=== PATIENT | female | born 1960 | race Caucasian/White ===

== ENCOUNTER 2017-10-16 10:54 | Emergency (ER) | payer MEDICAID ==
--- NOTE | 2017-10-16 11:35 | ED Physician Documentation ---
PD HPI HEENT - Stated complaint Stated Complaint: RT EAR PX - Chief complaint Chief Complaint: Heent - History obtained from History obtained from: Patient - History of Present Illness Timing - onset: How many days ago (few) Timing - duration: Days Timing - details: Gradual onset, Still present Location: Right ear Worsens: Other (palpation) Associated symptoms: Swollen nodes. No: Fever, Congestion, Facial swelling, Cough Similar symptoms before: Has not had sx before Recently seen: Not recently seen Review of Systems Constitutional: denies: Fever, Chills Ears: reports: Ear pain, Drainage/discharge. 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 - Present Medications Home Medications: Ambulatory Orders Medication Instructions Recorded Confirmed Gabapentin 100 - 300 mg PO PRN 10/16/17 Sulfamethox/Trimeth 800/160 1 each PO BID #14 tablet 10/16/17 [Bactrim Ds 800/160] - Allergies Allergies/Adverse Reactions: Allergies Allergy/AdvReac Type Severity Reaction Status Date / Time No Known Drug Allergies Allergy Verified 10/16/17 10:59 - Social History Does the pt smoke?: Yes Smoking Status: Current every day smoker Does the pt drink ETOH?: Yes ETOH Use: Beer Does the pt have substance abuse?: No - Immunizations Immunizations are current?: No PD ED PE NORMAL - Vitals Vital signs reviewed: Yes - General General: Alert and oriented X 3, Well developed/nourished - HEENT HEENT: Moist mucous membranes, Pharynx benign, Other (right ear around the external canal and inner pinna with redness and swelling, some clear fluid weeping. No purulence per se. The medial canal is okay and TM is normal on right. Left ear, canal, and TM are normal. ) - Neck Neck: Supple, no meningeal sign, Other (right preauricular adenopathy. ) - Cardiac Cardiac: RRR, No murmur - Respiratory Respiratory: Clear bilaterally - Derm Derm: Normal color, Warm and dry Results - Vitals Vitals: Vital Signs - 24 hr 10/16/17 10/16/17 10:56 12:37 Temperature 36.5 C 36.6 C Heart Rate 105 H 78 Respiratory 16 18 Rate Blood Pressure 170/91 H 164/99 H O2 Saturation 98 97 Oxygen O2 Source Room air - Labs Labs: Microbiology 10/16/17 12:29 Wound Culture - Preliminary Face - Right PD MEDICAL DECISION MAKING - ED course Complexity details: considered differential, d/w patient Departure - Departure Disposition: Home, Self Care Clinical Impression: Cellulitis of earlobe Qualifiers: Laterality: right Qualified Code(s): H60.11 - Cellulitis of right external ear Condition: Stable Record reviewed to determine appropriate education?: Yes Instructions: ED Cellulitis Facial Prescriptions: Sulfamethox/Trimeth 800/160 [Bactrim Ds 800/160] 1 each PO BID #14 tablet Comments: Cleanse the area with soap and water gently and then you can use the antibiotic eardrops 3 4 times a day. Also use a lidocaine jelly topically to reduce some of the discomfort and burning feeling. It does look to be a skin infection of the ear lobe and ear canal and so use Bactrim antibiotic orally twice daily for a week. Recheck if not improving over the next few days. Discharge Date/Time: 10/16/17 12:37
[2017-10-16] MEDS ORDERED: NEOMYCIN/POLYMYX/HC OTIC DROPS RIGHTEAR STA (11:54)
[2017-10-16] MEDS ORDERED: LIDOCAINE JELLY 2% 5 ML TUBE TOP STA (11:54)
[2017-10-16] MEDS ORDERED: SULFAMETH/TRIMETH DS 800/160 MG TABLET PO STA (11:54)
[2017-10-16 12:43] VITALS: BP 164/99
== END 2017-10-16 12:37 | disposition home or self-care (01) ==
LOC: ED 10:54
DX: H60.11 Cellulitis of right external ear (principal); F17.200 Nicotine dependence, unspecified, uncomplicated
CPT/HCPCS: 87070; 87205; 99283; A9270; J3490

== ENCOUNTER 2017-12-02 10:37 | Outpatient (CLI) | payer MEDICAID ==
[2017-12-02 12:48] LABS: BASOPHILS # (AUTO) 0.1 10^3/uL (0.0-0.1); BASOPHILS % (AUTO) 0.6 %; EOSINOPHILS # (AUTO) 0.1 10^3/uL (0.0-0.7); EOSINOPHILS % (AUTO) 0.5 %; LYMPHOCYTES % (AUTO) 17.5 %; MEAN CORPUSCULAR HEMOGLOBIN 30.6 pg (27.0-31.0); MEAN CORPUSCULAR HGB CONC 33.2 g/dL (32.0-36.0); MEAN PLATELET VOLUME 7.2 fL (7.9-10.8); MONOCYTES # (AUTO) 0.3 10^3/uL (0.0-1.0); MONOCYTES % (AUTO) 2.8 %; NEUTROPHILS % (AUTO) 78.6 %; PLT - PLATELET COUNT 406 10^3/uL (130-450); RED BLOOD COUNT 4.58 10^6/uL (4.20-5.40); RED CELL DISTRIBUTION WIDTH 13.3 % (12.0-15.0); WHITE BLOOD COUNT 11.5 x10^3/uL (4.8-10.8)
[2017-12-02 13:19] LABS: HB2 TOTAL 15.5 g/dL; HEMOGLOBIN A1C 0.58 g/dL; HEMOGLOBIN A1C % 5.6 % (4.6-6.2)
[2017-12-02 13:36] LABS: ALBUMIN 4.2 g/dL (3.2-5.5); ALBUMIN/GLOBULIN RATIO 1.2 (1.0-2.2); ALKALINE PHOSPHATASE 90 IU/L (42-121); ALT ALANINE AMINOTRANSFERASE 14 IU/L (10-60); AST ASPARTATE AMINOTRANSFERASE 17 IU/L (10-42); BILIRUBIN,TOTAL 0.7 mg/dL (0.2-1.0); BUN - BLOOD UREA NITROGEN 11 mg/dL (6-20); CALCIUM 9.4 mg/dL (8.5-10.3); CARBON DIOXIDE - CO2 31 mmol/L (21-32); CHLORIDE 100 mmol/L (101-111); CHOL/HDL RATIO 3.6 (<4.4); CHOLESTEROL 198 mg/dL; CREATININE 0.6 mg/dL (0.4-1.0); GFR - MDRD 104 (>89); GLUCOSE 96 mg/dL (70-100); HDL CHOLESTEROL 55 mg/dL; LDL CHOLESTEROL,CALCULATED 115 mg/dL; LDL/HDL RATIO 2.1 (<4.4); SODIUM 136 mmol/L (135-145); TOTAL PROTEIN 7.6 g/dL (6.7-8.2); VLDL CHOLESTEROL 28 mg/dL
== END 2017-12-02 10:38 | disposition home or self-care (01) ==
LOC: LAB.WCP 10:37
PROVIDERS: ATTEND Family Medicine
DX: Z13.1 Encounter for screening for diabetes mellitus (principal); Z13.220 Encounter for screening for lipoid disorders; R03.0 Elevated blood-pressure reading, without diagnosis of hypertension
CPT/HCPCS: 36415; 80053; 80061; 83036; 83721; 84443; 85025

== ENCOUNTER 2018-10-25 11:12 | Outpatient (CLI) | payer MEDICAID ==
--- NOTE | 2018-10-25 14:18 | XRAY Report ---
Reason: PELVIC PAIN,LEFT Procedure Date: 10/25/2018 Accession Number: [id number] / [id number] Procedure: WCP - Pelvis 1 View CPT Code: FULL RESULT: EXAM: PELVIS RADIOGRAPHY EXAM DATE: 10/25/2018 11:10 AM. CLINICAL HISTORY: Left-sided groin pain. History of left pelvic fracture. COMPARISON: XR HIP UNILAT MIN 2 VIEW 07/23/2007 6:58 PM. TECHNIQUE: 1 view. FINDINGS: Bones: Appearance of the inferior left pubic ramus and inferior right pubic ramus is stable compared to 2007. No acute fracture is detected. Joints: The visualized hip joints are symmetrically mildly narrowed, new compared to 2008. The pubis symphysis and sacroiliac joints are preserved. No subluxation. Soft Tissues: Normal. No soft tissue swelling. IMPRESSION: Mild degenerative disease. RADIA
== END 2018-10-25 11:13 | disposition home or self-care (01) ==
LOC: DI.WCP 11:12
PROVIDERS: ATTEND Physician Assistant
DX: M16.0 Bilateral primary osteoarthritis of hip (principal)
CPT/HCPCS: 72170

== ENCOUNTER 2019-05-16 10:03 | Outpatient (CLI) | payer MEDICAID ==
[2019-05-16 15:24] LABS: BASOPHILS # (AUTO) 0.1 10^3/uL (0.0-0.1); BASOPHILS % (AUTO) 0.9 %; EOSINOPHILS # (AUTO) 0.1 10^3/uL (0.0-0.7); EOSINOPHILS % (AUTO) 1.3 %; HGB - HEMOGLOBIN 14.2 g/dL (12.0-16.0); LYMPHOCYTES # (AUTO) 2.2 10^3/uL (1.5-3.5); LYMPHOCYTES % (AUTO) 26.4 %; MEAN CORPUSCULAR HEMOGLOBIN 29.7 pg (27.0-31.0); MEAN CORPUSCULAR HGB CONC 31.4 g/dL (32.0-36.0); MEAN CORPUSCULAR VOLUME 94.6 fL (81.0-99.0); MEAN PLATELET VOLUME 9.7 fL (7.9-10.8); MONOCYTES # (AUTO) 0.4 10^3/uL (0.0-1.0); MONOCYTES % (AUTO) 4.3 %; NEUTROPHILS # (AUTO) 5.5 10^3/uL (1.5-6.6); NEUTROPHILS % (AUTO) 66.7 %; PLT - PLATELET COUNT 246 10^3/uL (130-450); RED BLOOD COUNT 4.78 10^6/uL (4.20-5.40); RED CELL DISTRIBUTION WIDTH 12.9 % (12.0-15.0); WHITE BLOOD COUNT 8.2 x10^3/uL (4.8-10.8)
[2019-05-16 16:13] LABS: ALBUMIN 4.9 g/dL (3.2-5.5); ALBUMIN/GLOBULIN RATIO 1.7 (1.0-2.2); ALKALINE PHOSPHATASE 89 IU/L (42-121); ALT ALANINE AMINOTRANSFERASE 22 IU/L (10-60); AST ASPARTATE AMINOTRANSFERASE 23 IU/L (10-42); BILIRUBIN,TOTAL 0.6 mg/dL (0.2-1.0); BUN - BLOOD UREA NITROGEN 18 mg/dL (6-20); CALCIUM 9.7 mg/dL (8.5-10.3); CARBON DIOXIDE - CO2 29 mmol/L (21-32); CHLORIDE 101 mmol/L (101-111); CHOL/HDL RATIO 3.9 (<4.4); CHOLESTEROL 270 mg/dL; CREATININE 0.7 mg/dL (0.4-1.0); GFR - MDRD 87 (>89); GLUCOSE 89 mg/dL (70-100); HDL CHOLESTEROL 70 mg/dL; LDL CHOLESTEROL,CALCULATED 165 mg/dL; LDL/HDL RATIO 2.4 (<4.4); SODIUM 138 mmol/L (135-145); TOTAL PROTEIN 7.8 g/dL (6.7-8.2); VLDL CHOLESTEROL 35 mg/dL
== END 2019-05-16 23:59 | disposition home or self-care (01) ==
LOC: LAB.WCP 10:03
PROVIDERS: ATTEND Physician Assistant Medical
DX: Z00.00 Encounter for general adult medical examination without abnormal findings (principal)
CPT/HCPCS: 36415; 80053; 80061; 83721; 84443; 85025

== ENCOUNTER 2019-08-08 09:52 | Day surgery (SDC) | payer MEDICAID ==
[~2019-08-08 09:52] MED LIST: SODIUM/POTASSIUM/MAG SULFATES 354 ML PREP KIT PO SCH
[2019-08-08] MEDS ORDERED: LACTATED RINGERS 1,000 ML IV ONE (10:45)
[2019-08-08] MEDS ORDERED: fentaNYL 250 MCG/5 ML VIAL IVP ONE (11:54)
[2019-08-08] MEDS ORDERED: MIDAZOLAM 2 MG/2 ML VIAL IVP ONE (11:54)
[2019-08-08 13:01] VITALS: BP 110/58
== END 2019-08-08 09:53 | disposition home or self-care (01) ==
LOC: SDS 09:52
PROVIDERS: ATTEND Internal Medicine Gastroenterology
PROC: 0DBN8ZZ Excision of Sigmoid Colon, Via Natural or Artificial Opening Endoscopic (ICD-10-PCS; 2019-08-08)
PROC: 0DBK8ZZ Excision of Ascending Colon, Via Natural or Artificial Opening Endoscopic (ICD-10-PCS; principal; 2019-08-08 11:45)
DX: Z12.11 Encounter for screening for malignant neoplasm of colon (principal); D12.2 Benign neoplasm of ascending colon; K63.5 Polyp of colon; I10 Essential (primary) hypertension
CPT/HCPCS: 45380; 93005; A9270; J3010; J7120

== ENCOUNTER 2019-08-29 10:36 | Outpatient (CLI) | payer MEDICAID ==
[2019-08-29 18:47] LABS: CHOL/HDL RATIO 4.2 (<4.4); CHOLESTEROL 216 mg/dL; HDL CHOLESTEROL 52 mg/dL; LDL CHOLESTEROL,CALCULATED 108 mg/dL; LDL/HDL RATIO 2.1 (<4.4); VLDL CHOLESTEROL 56 mg/dL
== END 2019-08-29 23:59 | disposition home or self-care (01) ==
LOC: LAB.WCP 10:36
PROVIDERS: ATTEND Physician Assistant Medical
DX: E78.5 Hyperlipidemia, unspecified (principal)
CPT/HCPCS: 36415; 80061; 83721

== ENCOUNTER 2019-12-20 05:03 | Outpatient (CLI) | payer MEDICAID | END 2019-12-20 23:59 | disposition home or self-care (01) | LOC: LAB.R 05:03 | PROVIDERS: ATTEND Nurse Practitioner Family | DX: R30.0 Dysuria (principal) | CPT/HCPCS: 87086 ==

== ENCOUNTER 2020-01-13 12:43 | Outpatient (CLI) | payer MEDICAID ==
--- NOTE | 2020-01-13 15:35 | DEXA Report ---
Reason: POSTMENOPAUSAL Procedure Date: 01/13/2020 Accession Number: [id number] / [id number] Procedure: DEX - Dexa Spine and/or Hip CPT Code: Final Report FULL RESULT: PROCEDURE: Dexa Spine and/or Hip INDICATIONS: POSTMENOPAUSAL TECHNIQUE: Dual energy x-ray absorptiometry (DXA) was performed on a [employer] System. Regions measured are the AP Spine, femoral neck, and if needed forearm. COMPARISON: None. FINDINGS: Lumbar Spine: Bone Mineral Density 1.112 g/cm/cm,T score -0.6, normal Left Hip: Bone Mineral Density 0.817 g/cm/cm,T score -1.5, osteopenia Left Femoral Neck: Bone Mineral Density 0.764 g/cm/cm, T score -2.0, osteopenia (T score greater or equal to -1.0: NORMAL) (T score from -1.1 to -2.4: OSTEOPENIA) (T score less than or equal to -2.5 to: OSTEOPOROSIS) Impression: Mild to moderate osteopenia within the left hip and femoral neck. Patients with diagnosis of osteoporosis or osteopenia should have regular bone mineral density assessment. For those eligible for Medicare, routine testing is allowed once every 2 years. Testing frequency can be increased for patients who have rapidly progressing disease or for those who are receiving medical therapy to restore bone mass. Reviewed by: Rosemarie Olmos MD on 01/13/2020 3:34 PM PDT Approved by: Rosemarie Olmos MD on 01/13/2020 3:34 PM PDT Station ID: [id number]
== END 2020-01-13 12:44 | disposition home or self-care (01) ==
LOC: DI 12:43
PROVIDERS: ATTEND Physician Assistant Medical
DX: M85.89 Other specified disorders of bone density and structure, multiple sites (principal)
CPT/HCPCS: 77080

== ENCOUNTER 2020-03-30 15:31 | Outpatient (CLI) | payer MEDICAID ==
--- NOTE | 2020-04-02 16:19 | Mammography Report ---
BILATERAL DIGITAL SCREENING MAMMOGRAM 3D/2D: 03/30/2020 CLINICAL: Baseline exam. Routine screening. No prior exams were available for comparison. There are scattered fibroglandular elements in both br easts. There are 0.3 cm grouped heterogeneous calcifications in the left breast at 5 o'clock anterior depth. No other significant masses, calcifications, or other findings are seen in either breast. IMPRESSION: INCOMPLETE: NEEDS ADDITIONAL IMAGING EVALUATION The 0.3 cm grouped heterogeneous calcifications in the left breast are indeterminate. Mediolateral a nd spot magnification views are recommended. This exam was interpreted at Station ID: [id number]. NOTE: For mammograms, a report in lay terms will be sent to the patient. Approximately 15% of breast malignancies will not be visualized mammographically. In the management of a palpable breast mass, a negative mammogram must not discourage biopsy of a clinically suspicious lesion. Electronically Signed By: Benja Roque M.D. aty/:03/30/2020 19:04:14 ACR BI-RADS Category 0: Incomplete 3340F PARENCHYMAL PATTERN: (A) - The breast(s) demonstrate(s) scattered fibroglandular densities. BI-RADS CATEGORY: (0) - 0 RECOMMENDATION: (ADDMAM) - Recommend additional mammographic views. [id number] Immediate follow-up LATERALITY: (L)
== END 2020-03-30 15:32 | disposition home or self-care (01) ==
LOC: DI.N 15:31
DX: Z12.31 Encounter for screening mammogram for malignant neoplasm of breast (principal); R92.8 Other abnormal and inconclusive findings on diagnostic imaging of breast
CPT/HCPCS: 77063; 77067

== ENCOUNTER 2020-05-04 08:35 | Outpatient (CLI) | payer MEDICAID ==
--- NOTE | 2020-05-07 14:05 | Mammography Report ---
UNILATERAL LEFT DIGITAL DIAGNOSTIC MAMMOGRAM 3D/2D: 05/04/2020 CLINICAL: Patient returns for magnification views of microcalcifications in the left breast. Comparison is made to exam dated: 03/30/2020 mammogram - [facility]. There are sca ttered fibroglandular elements in left breast. There are grouped heterogeneous calcifications in the left breast at 5 o'clock middle depth. These a re seen in additional views. No other significant masses or calcifications are seen in the breast. IMPRESSION: SUSPICIOUS OF MALIGNANCY The grouped heterogeneous calcifications in the left breast are at a moderate suspicion for malignanc y. A stereotactic biopsy is recommended. This exam was interpreted at Station ID: [id number]. NOTE: For mammograms, a report in lay terms will be sent to the patient. Approximately 15% of breast malignancies will not be visualized mammographically. In the management of a palpable breast mass, a negative mammogram must not discourage biopsy of a clinically suspicious lesion. SUMMARY: This was discussed with the patient by the radiologist Dr. Mckeon at the time of the exam. Electronically Signed By: Malka Howard M.D. lk/:05/04/2020 09:25:36 ACR BI-RADS Category 4b: Suspicious abnormality - intermediate suspicion of malignancy 3344F PARENCHYMAL PATTERN: (A) - The breast(s) demonstrate(s) scattered fibroglandular densities. BI-RADS CATEGORY: (4b) - Mod Susp Biopsy follow-up [id number] Immediate follow-up LATERALITY: (B)
== END 2020-05-04 08:36 | disposition home or self-care (01) ==
LOC: DI 08:35
PROVIDERS: ATTEND Physician Assistant Medical
DX: R92.1 Mammographic calcification found on diagnostic imaging of breast (principal)

== ENCOUNTER 2020-07-24 08:00 | Outpatient (CLI) | payer MEDICAID ==
[2020-07-24 19:00] LABS: ALBUMIN 4.4 g/dL (3.2-5.5); ALBUMIN/GLOBULIN RATIO 1.8 (1.0-2.2); BILIRUBIN,TOTAL 0.7 mg/dL (0.2-1.0); CALCIUM 9.9 mg/dL (8.5-10.3); CREATININE 0.8 mg/dL (0.4-1.0); TOTAL PROTEIN 6.8 g/dL (6.7-8.2)
[2020-07-24 19:12] LABS: BASOPHILS # (AUTO) 0.1 10^3/uL (0.0-0.1); BASOPHILS % (AUTO) 0.8 %; EOSINOPHILS # (AUTO) 0.1 10^3/uL (0.0-0.7); EOSINOPHILS % (AUTO) 1.4 %; HGB - HEMOGLOBIN 13.2 g/dL (12.0-16.0); LYMPHOCYTES # (AUTO) 2.5 10^3/uL (1.5-3.5); LYMPHOCYTES % (AUTO) 35.4 %; MEAN CORPUSCULAR HEMOGLOBIN 30.6 pg (27.0-31.0); MEAN CORPUSCULAR HGB CONC 32.8 g/dL (32.0-36.0); MEAN CORPUSCULAR VOLUME 93.3 fL (81.0-99.0); MEAN PLATELET VOLUME 9.6 fL (7.9-10.8); MONOCYTES # (AUTO) 0.3 10^3/uL (0.0-1.0); MONOCYTES % (AUTO) 4.1 %; NEUTROPHILS # (AUTO) 4.1 10^3/uL (1.5-6.6); PLT - PLATELET COUNT 245 10^3/uL (130-450); RED BLOOD COUNT 4.31 10^6/uL (4.20-5.40); RED CELL DISTRIBUTION WIDTH 12.4 % (12.0-15.0); WHITE BLOOD COUNT 7.1 x10^3/uL (4.8-10.8)
[2020-07-24 20:58] LABS: HEMOGLOBIN A1c% 5.5 % (4.27-6.07)
== END 2020-07-24 23:59 | disposition home or self-care (01) ==
LOC: LAB.WCP 08:00
PROVIDERS: ATTEND Family Medicine
DX: I10 Essential (primary) hypertension (principal); R42 Dizziness and giddiness; Z83.3 Family history of diabetes mellitus
CPT/HCPCS: 36415; 80053; 83036; 84443; 85025; 85651; 86140

== ENCOUNTER 2021-03-11 09:28 | Outpatient (CLI) | payer MEDICARE, MEDICAID ==
[2021-03-11 12:03] LABS: BASOPHILS # (AUTO) 0.1 10^3/uL (0.0-0.1); BASOPHILS % (AUTO) 0.8 %; EOSINOPHILS # (AUTO) 0.1 10^3/uL (0.0-0.7); EOSINOPHILS % (AUTO) 1.8 %; HCT - HEMATOCRIT 43.5 % (37.0-47.0); HGB - HEMOGLOBIN 14.3 g/dL (12.0-16.0); LYMPHOCYTES # (AUTO) 2.2 10^3/uL (1.5-3.5); LYMPHOCYTES % (AUTO) 28.5 %; MEAN CORPUSCULAR HEMOGLOBIN 29.9 pg (27.0-31.0); MEAN CORPUSCULAR HGB CONC 32.9 g/dL (32.0-36.0); MEAN PLATELET VOLUME 9.5 fL (7.9-10.8); MONOCYTES # (AUTO) 0.4 10^3/uL (0.0-1.0); MONOCYTES % (AUTO) 4.6 %; PLT - PLATELET COUNT 251 10^3/uL (130-450); RED BLOOD COUNT 4.78 10^6/uL (4.20-5.40); RED CELL DISTRIBUTION WIDTH 12.8 % (12.0-15.0); WHITE BLOOD COUNT 7.8 x10^3/uL (4.8-10.8)
[2021-03-11 12:30] LABS: ALBUMIN 4.5 g/dL (3.2-5.5); ALBUMIN/GLOBULIN RATIO 1.5 (1.0-2.2); ALKALINE PHOSPHATASE 89 IU/L (42-121); ALT ALANINE AMINOTRANSFERASE 22 IU/L (10-60); AST ASPARTATE AMINOTRANSFERASE 23 IU/L (10-42); BILIRUBIN,TOTAL 0.8 mg/dL (0.2-1.0); BUN - BLOOD UREA NITROGEN 18 mg/dL (6-20); CALCIUM 9.5 mg/dL (8.5-10.3); CARBON DIOXIDE - CO2 28 mmol/L (21-32); CHLORIDE 102 mmol/L (101-111); CHOL/HDL RATIO 4.3 (<4.4); CHOLESTEROL 235 mg/dL; CREATININE 0.9 mg/dL (0.4-1.0); GFR - MDRD 64 (>89); GLUCOSE 104 mg/dL (70-100); HDL CHOLESTEROL 55 mg/dL; LDL CHOLESTEROL,CALCULATED 139 mg/dL; LDL/HDL RATIO 2.5 (<4.4); SODIUM 140 mmol/L (135-145); TOTAL PROTEIN 7.5 g/dL (6.7-8.2); TRIGLYCERIDES 207 mg/dL; VLDL CHOLESTEROL 41 mg/dL
== END 2021-03-11 23:59 | disposition home or self-care (01) ==
LOC: LAB.WCP 09:28
PROVIDERS: ATTEND Physician Assistant Medical
DX: E78.5 Hyperlipidemia, unspecified (principal); K14.0 Glossitis; I10 Essential (primary) hypertension
CPT/HCPCS: 36415; 80053; 80061; 82607; 83721; 85025

== ENCOUNTER 2022-09-26 12:30 | Outpatient (CLI) | payer MEDICARE, MEDICAID ==
[2022-09-26 17:51] LABS: BASOPHILS # (AUTO) 0.1 10^3/uL (0.0-0.1); BASOPHILS % (AUTO) 0.8 %; EOSINOPHILS # (AUTO) 0.1 10^3/uL (0.0-0.7); EOSINOPHILS % (AUTO) 0.9 %; HCT - HEMATOCRIT 40.1 % (37.0-47.0); HGB - HEMOGLOBIN 13.3 g/dL (12.0-16.0); LYMPHOCYTES # (AUTO) 2.1 10^3/uL (1.5-3.5); LYMPHOCYTES % (AUTO) 27.5 %; MEAN CORPUSCULAR HEMOGLOBIN 30.2 pg (27.0-31.0); MEAN CORPUSCULAR HGB CONC 33.2 g/dL (32.0-36.0); MEAN CORPUSCULAR VOLUME 91.1 fL (81.0-99.0); MEAN PLATELET VOLUME 9.4 fL (7.9-10.8); MONOCYTES # (AUTO) 0.3 10^3/uL (0.0-1.0); MONOCYTES % (AUTO) 4.5 %; PLT - PLATELET COUNT 289 10^3/uL (130-450); RED CELL DISTRIBUTION WIDTH 12.6 % (12.0-15.0); WHITE BLOOD COUNT 7.5 x10^3/uL (4.8-10.8)
[2022-09-26 17:56] LABS: CALCIUM 9.7 mg/dL (8.5-10.3); CREATININE 0.8 mg/dL (0.4-1.0); POTASSIUM 4.3 mmol/L (3.5-5.0)
== END 2022-09-26 12:45 | disposition home or self-care (01) ==
LOC: LAB.N 12:30
PROVIDERS: ATTEND Physician Assistant Medical
DX: R00.0 Tachycardia, unspecified (principal)
CPT/HCPCS: 36415; 80048; 84443; 85025

== ENCOUNTER 2022-11-22 13:08 | Outpatient (CLI) | payer MEDICARE, MEDICAID | END 2022-11-22 23:59 | disposition critical access hospital (66) | LOC: EMS 13:08 | DX: R40.4 Transient alteration of awareness (principal); R29.810 Facial weakness; R47.81 Slurred speech | CPT/HCPCS: A0425; A0429 ==

== ENCOUNTER 2022-11-22 13:23 | Emergency (ER) | payer MEDICARE, MEDICAID ==
[2022-11-22] MEDS ORDERED: SODIUM CHLORIDE 0.9% 1,000 ML IV STA ×2 (13:32→14:34)
--- NOTE | 2022-11-22 13:32 | ED Physician Documentation ---
History of Present Illness - Stated complaint Stated Complaint: CODE STROKE - Additonal information Additional information: 62-year-old female was brought to the emergency department under code stroke activation. Reportedly she was sitting in a chair watching her grandsons soccer game. Last seen normal at 12:45 PM. Family and bystanders found her slumped in the chair. She was lowered to the ground. Per EMS, there was bystander CPR but no confirmed loss of pulse. She quickly aroused. Family and bystanders on scene stated that she had slurred speech. Patient is known at baseline to have a right eye that wanders/palsy which is normal but reportedly now worse than michael diaz. 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 Her EKG showed normal sinus rhythm. On presentation to the emergency department the patient has noted left-sided facial droop as well as a right eye gaze palsy. She has no slurred speech or drift in her arms or legs. 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 - Present Medications Home Medications: Ambulatory Orders Medication Instructions Recorded Confirmed Atorvastatin [Lipitor] 10 mg pe PO DAILY 08/08/19 11/22/22 buPROPion HCL [Bupropion HCl Sr] 150 mg PO ONCE 08/08/19 11/22/22 Aspirin [Gervais Aspirin] 81 mg PO DAILY 11/22/22 11/22/22 Buspirone HCl 15 mg PO DAILY 11/22/22 11/22/22 Carvedilol [Coreg] 40 mg PO DAILY 11/22/22 11/22/22 Chlorthalidone 25 mg PO DAILY 11/22/22 11/22/22 Pantoprazole [Protonix] 40 mg PO DAILY 11/22/22 11/22/22 Ticagrelor [Brilinta] 90 mg PO BID #14 tablet 11/22/22 cilostazoL [Cilostazol] 100 mg PO BID 11/22/22 11/22/22 - Allergies Allergies/Adverse Reactions: Allergies Allergy/AdvReac Type Severity Reaction Status Date / Time No Known Drug Allergies Allergy Verified 11/22/22 13:47 - Social History Does the pt smoke?: Yes Smoking Status: Current every day smoker Does the pt drink ETOH?: Yes Does the pt have substance abuse?: No - Immunizations Immunizations are current?: No PD ED PE EXPANDED - General General: Alert, No acute distress, Well developed/nourished - Eyes Eyes: No: EOMI (Disconjugate gaze right eye.) - Cardiac Cardiac: Regular Rate, Regular Rhythm, Radial strong equal, Pedal strong equal, Cap refill < 2 sec. No: Murmur Present - Respiratory Respiratory: Clear to ausultation betina. No: Distress, Labored - Abdomen Abdomen: Normal Bowel sounds. No: Tender to palpation - Extremities Extremities: Normal. No: Deformity, Tenderness - GCS Eye Opening: Spontaneous Motor: Obeys Commands Verbal: Oriented Total: 15 Results - Vitals Vitals: Vital Signs - 24 hr 11/22/22 11/22/22 11/22/22 13:41 14:21 14:41 Temperature 36.8 C Heart Rate 95 88 90 Respiratory 18 17 15 Rate Blood Pressure 177/74 H 141/62 H 157/68 H O2 Saturation 97 98 94 11/22/22 11/22/22 15:01 17:13 Temperature Heart Rate 92 90 Respiratory 18 19 Rate Blood Pressure 134/64 H 126/76 O2 Saturation 92 98 Oxygen O2 Source Room air - EKG (time done) 1341 EKG releavant findings:: EKG personally interpreted by author of this note. Relevant findings are: Rate: Rate (enter#) (97) Rhythm: NSR [place]: Normal Intervals: Normal TX QRS: Normal Ischemia: Normal ST segments Compare to prior EKG: Old EKG unavailable Computer interpretation: Agree with computer - Labs Labs: Laboratory Tests 11/22/22 11/22/22 11/22/22 13:57 13:57 13:57 WBC 6.0 RBC 4.33 Hgb 12.8 Hct 38.9 MCV 89.8 MCH 29.6 MCHC 32.9 RDW 12.4 Plt Count 288 MPV 9.0 Neut # (Auto) 4.1 Lymph # (Auto) 1.5 [place] # (Auto) 0.3 Eos # (Auto) 0.1 Baso # (Auto) 0.1 Absolute Nucleated RBC 0.00 Nucleated RBC % 0.0 PT 11.3 INR 1.0 Sodium 132 L Potassium 3.7 Chloride 98 L Carbon Dioxide 27 Anion Gap 7.0 BUN 17 Creatinine 0.9 Estimated GFR (MDRD) 64 L Glucose 125 H Calcium 9.2 Total Bilirubin 0.6 AST 15 ALT 13 Alkaline Phosphatase 90 Troponin I High Sens Total Protein 7.2 Albumin 4.0 Globulin 3.2 Albumin/Globulin Ratio 1.3 Lipase 25 SARS-CoV-2 (PCR) 11/22/22 11/22/22 11/22/22 13:57 14:20 14:48 WBC RBC Hgb Hct MCV MCH MCHC RDW Plt Count MPV Neut # (Auto) Lymph # (Auto) [place] # (Auto) Eos # (Auto) Baso # (Auto) Absolute Nucleated RBC Nucleated RBC % PT INR Sodium Potassium Chloride Carbon Dioxide Anion Gap BUN Creatinine Estimated GFR (MDRD) Glucose Calcium Total Bilirubin AST ALT Alkaline Phosphatase Troponin I High Sens 10.2 9.6 Total Protein Albumin Globulin Albumin/Globulin Ratio Lipase SARS-CoV-2 (PCR) NOT DETECTED - Rads (name of study) ct head wo Relevant Findings:: Final report received (Questionable doll-white matter loss of the left posterior occipital lobe which may be in part due to artifact. Acute infarction not excluded. No acute intracranial hemorrhage) Angio neck Relevant Findings:: Final report received (Severe atherosclerosis of the aortic arch with high-grade stenosis involving origin of left common carotid artery. Moderate to high-grade stenosis throughout the left common carotid artery with occlusion of the left ICA from its origin.) cxr Relevant Findings:: Final report received (No acute cardiopulmonary process) angio head Relevant Findings:: Final report received (Occlusion involving the left ICA. Left cerebral circulation is supplied from the right side via the anterior communicating artery. No hemodynamically significant stenosis or aneurysm is seen in the rest of the intracranial circulation. No acute intercranial bleed midline shift or mass effect.) MRI brain Relevant Findings:: Final report received (No evidence of acute infarction. No acute intracranial bleed. No midline shift or mass effect) Carotid US Relevant Findings:: Final report received (Right ICA greater than 90% stenosis. In the left ICA there is occlusion based on peak velocity. Antegrade flow within the right vertebral artery. Antegrade flow within the left vertebral artery) PD Medical Decision Making - ED course Complexity details: reviewed results, re-evaluated patient, considered differential, d/w patient Reviewed Lab Results: I thoroughly reviewed the patient's labs. Per my interpretation no acute worrisome findings. No leukocytosis worrisome anemia. Troponins were negative. PT/INR normal. 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 Last known normal 12:45 PM. Reportedly just a few minutes later she was seen slumped in a chair. She was lowered to the ground. EMS reported bystander CPR though the family denies this. For EMS she was shown to have a normal sinus rhythm. She did have the chronic known left facial droop which family stated was worse than baseline. Her blood sugar was 138. On presentation to the emergency department she was in normal sinus rhythm had initial systolic blood pressure of 177. She did have an NIHSS score of 3 only for the left-sided facial droop, which again is not new as well as gaze palsy on the right side (again not new.) However given the history she was sent to the CT scanner under code stroke protocol. No obvious bleed was seen. At the same time angiograms of the head and neck were completed. The CT of the head suggests loss of doll-white matter in the left occipital lobe which could be an evolving infarct. I spoke on the phone with telestroke physician Dr. Krause. Because of the history of possible CPR on scene she is not a tPA candidate. However he has concern that there could be some decreased left MCA flow. At this time the angio of the neck had been completed and it did show fairly significant atherosclerotic occlusion as well as stenosis of the left carotid artery and ICA. Again however the patient has no right-sided deficits. With this finding Dr. Krause is recommending a stat MRI of the brain without contrast which has been ordered. He is also recommending a stat carotid ultrasound bilaterally. We may need vascular consult. I spoke with the patient's 2 daughters at the bedside and at this time they were able to give more history which includes a recent cardiology visit with Dr. Bartlett at [facility] [facility]. Reportedly the patient is going to be undergoing a cardiology procedure this upcoming Thursday to look at the blood flow in the vessels through her heart. She has also reportedly had a carotid ultrasound done where she was made aware of the severe left ICA and carotid artery disease. She has not yet been seen by vascular. Dr. Krause the neurologist made the recommendation for permissive hypercapnia and to make sure that her blood pressure was not less than [address] Krause did asked that I hold off on aspirin and Plavix at this time until we are certain that she does not need emergent endovascular recanalization or tPA. Initial blood pressure was 177 on repeat it was 144 thus IV fluid bolus was ordered. At this time, 1445, MRI, carotid US are pending 1730: MRI was ultimately negative for findings to suggest an acute infarct of the brain. Subsequently a bilateral carotid Dopplers were completed. Based on peak velocity there was estimated 90% stenosis of the right ICA and near 100% occlusion of the left ICA. This does contrast with the CT angios completed of the neck which did not show significant stenosis of the right ICA. Given these findings I spoke with Dr. Oh [facility] vascular surgeon on-call. I was requesting transfer for further evaluation and/or interventional radiology intervention. He did not feel that the patient needed emergent transfer but he would like to see the patient in office this week. Patient is to call to schedule on Thursday. He will let that his office know. Subsequently I then again spoke with Dr. Krause the telepsych neurologist that I had spoken with earlier. He was aware of the Doppler findings. He requested the patient be started on Brilinta in addition to her daily aspirin. Finally I again conversed with Dr. Machado cardiology on-call at [facility] as the patient was to have a cardiac catheterization on Thursday. He is going to let the team know but feels that it is likely going to be delayed in favor of addressing the significant bilateral carotid artery stenosis. I then did speak at the bedside extensively with the patient and her 2 daughters and let them know the findings on labs and imaging. They will call Dr. Rojas's office on Thursday. They will also follow closely with cardiology. Prescription for Brilinta is being sent to the [facility] in [place]. I discussed with them the usual emergent return precautions for worsening symptoms. Departure - Departure Disposition: 01 Home, Self Care Clinical Impression: Loss of consciousness Carotid artery stenosis Qualifiers: Laterality: bilateral Qualified Code(s): I65.23 - Occlusion and stenosis of bilateral carotid arteries Carotid artery occlusion Qualifiers: Laterality: left Qualified Code(s): I65.22 - Occlusion and stenosis of left carotid artery Condition: Serious Record reviewed to determine appropriate education?: Yes Prescriptions: Ticagrelor [Brilinta] 90 mg PO BID #14 tablet Comments: You came to the emergency department today because you had a lapse in consciousness while sitting in the chair at the [facility]. As discussed at the bedside there was initially concerns that you could have been having a stroke. Ultimately an MRI completed of your brain today did not show any findings to suggest cerebral infarction or stroke. However angiogram findings of the neck show near 100% occlusion of the left internal carotid artery. An ultrasound of the neck shows 90% ICA stenosis and near 100% left ICA stenosis/occlusion. I discussed this case with Dr. Oh a vascular surgeon at [facility]. He would like to see you in office this week. You are directed to call the office on Thursday morning at [phone] I anticipate that they will work to get you seen Thursday or Thursday. Please call Dr. Bartlett, your cardiology office on Thursday as well to discuss this ED visit. I suspect that they will be delaying your cardiac catheterization. A new prescription for medication called Brilinta is being sent to your preferred pharmacy in [place]. Please fill it and begin taking twice daily. You can continue your other usual medications. Return immediately to the ER if you develop any focal weakness in your arms or legs of the either side or if you develop right-sided facial droop NIHSS - Time Time: 13:25 - Level of Consciousness Level of consciousness: (0) Alert, Keenly responsive LOC Questions: (0) Answers both Q's correct LOC Commands: (0) Performs both correctly - Gaze Best Gaze: (1) Partial gaze palsy - Visual Visual: (0) No loss - Facial Palsy Facial Palsy: (2) Partial paralysis - Motor Arms (both separate) Motor Arm (right): (0) No drift Motor Arm (left): (0) No drift - Motor Legs (both separate) Motor Leg (right): (0) No drift Motor Leg (left): (0) No drift - Limb Ataxia Limb Ataxia: (0) Absent - Sensory Sensory: (0) Normal - Best Language Best Language: (0) No aphasia - Dysarthria Dysarthria: (0) Normal - Extinction and Inattention (formally neg Extinction and inattention: (0) No abnormality - Total Score/Results Total Score/Result: 3
--- NOTE | 2022-11-22 13:57 | CT Report ---
PROCEDURE: Head W/O Stroke Protocol INDICATIONS: code stroke protocol TECHNIQUE: Noncontrast 4.5 mm thick angled axial sections acquired from the foramen magnum to the vertex, with c oronal reformats. For radiation dose reduction, the following was used: automated exposure control, adjustment of mA and/or kV according to patient size. COMPARISON: None. FINDINGS: Image quality: Significant artifact most prominent at the skull base. CSF spaces: Basal cisterns are patent. No extra-axial fluid collections. Ventricles are normal in size and shape. Brain: No midline shift. No intracranial masses or hemorrhage. Subtle doll-white differentiation lo ss of the posterior aspect of the left occipital lobe. Skull and face: Calvarium and visualized facial bones are intact, without suspicious lesions. Sinuses: Visualized sinuses and mastoids are clear. IMPRESSION: Questionable doll-white matter loss of the left posterior occipital lobe which may be in part due to artifact. Acute infarction not excluded. Recommend clinical correlation and consider MRI for further evaluation. No acute intracranial hemorrhage. Findings were discussed with the ER provider Dr. Davi Brown at approximately 1255 hrs [facility], [address] time on 11/22/2022 This study fulfills neurological imaging criteria for inclusion or exclusion of acute stroke therapie s based on available published neurological imaging guidelines. Reviewed by: En Carter DO on 11/22/2022 12:56 PM STORMY Approved by: En Carter DO on 11/22/2022 12:56 PM STORMY Station ID: [id number]
[2022-11-22] MEDS ORDERED: ASPIRIN CHEW 81 MG TABLET PO STA (13:59)
[2022-11-22] MEDS ORDERED: CLOPIDOGREL 75 MG TABLET PO STA (14:00)
--- NOTE | 2022-11-22 14:01 | XRAY Report ---
PROCEDURE: Chest 1 View X-Ray INDICATIONS: Chest Pain TECHNIQUE: One view of the chest was acquired. COMPARISON: None. FINDINGS: Surgical changes and devices: None. Lungs and pleura: No pleural effusions or pneumothorax. Lungs are clear. Mediastinum: Mediastinal contours appear normal. Heart size is normal. Bones and chest wall: No suspicious bony lesions. Overlying soft tissues appear unremarkable. IMPRESSION: No acute cardiopulmonary process. Reviewed by: Ernesto Matson MD on 11/22/2022 2:00 PM PDT Approved by: Ernesto Matson MD on 11/22/2022 2:00 PM PDT Station ID: [id number]
--- NOTE | 2022-11-22 14:01 | CT Report ---
PROCEDURE: ANGIO NECK W INDICATIONS: L sided facial droop, L neck pain CONTRAST: 80ml omni 350 TECHNIQUE: After the administration of intravenous contrast, 1.5 mm axial sections acquired from the aortic arch to the [place] of [place]. Coronal 3-D maximum intensity projection (MIP) and/or volume rendering ref ormats were then performed. For radiation dose reduction, the following was used: automated exposur e control, adjustment of mA and/or kV according to patient size. COMPARISON: None. FINDINGS: Image quality: Excellent. Carotid system: The great vessels demonstrate a conventional anatomy as they arise from the aortic a rch. Moderate amount of atherosclerotic calcifications involving aortic arch is seen extending to inv olve origin of left, carotid artery causing high-grade greater than 90% stenosis involving origin of left common carotid artery. There is diffuse moderate to high-grade stenosis throughout left common c arotid artery with occlusion of left internal carotid artery from its origin. Right common carotid ar ailyn and internal carotid arteries show normal contrast opacification with no hemodynamically signifi cant stenosis. Posterior circulation: The origins of the vertebral arteries appear patent. The more superior porti ons of the vertebral arteries demonstrate normal course and caliber. They join to form a normal appe aring basilar artery. Soft tissues: Visualized neck soft tissues demonstrate no suspicious abnormalities. The thyroid is normal in size and there are no incidental findings. Bones: No suspicious bony lesions. Visualized cervical spine appears normally aligned. IMPRESSION: 1. Significant atherosclerotic disease involving aortic arch with high-grade stenosis involving origi n of left common carotid artery. Moderate to high-grade stenosis throughout left common carotid arter y with occlusion of left internal carotid artery from its origin. 2. No hemodynamically significant stenosis or aneurysm is seen in right carotid arteries. 3. No hemodynamically significant stenosis is seen in bilateral vertebral arteries. The estimate of stenosis included in the report of the imaging study was calculated using the NASCET method CLINICAL RECOMMENDATION STATEMENTS: In patients <35 years with an ITN detected on CT, MRI, or extrathyroidal ultrasound, the Committee re commends further evaluation with dedicated thyroid ultrasound if the nodule is "e1 cm and has no susp icious imaging features, and if the patient has normal life expectancy. In patients "e35 years with an ITN detected on CT, MRI, or extrathyroidal ultrasound, the Committee r ecommends further evaluation with dedicated thyroid ultrasound if the nodule is "e1.5 cm and has no s uspicious imaging features, and if the patient has normal life expectancy. (ACR, 2014) Reviewed by: Ernesto Matson MD on 11/22/2022 2:00 PM PDT Approved by: Ernesto Matson MD on 11/22/2022 2:00 PM PDT Station ID: [id number]
[2022-11-22 14:05] LABS: BASOPHILS # (AUTO) 0.1 10^3/uL (0.0-0.1); BASOPHILS % (AUTO) 0.8 %; EOSINOPHILS # (AUTO) 0.1 10^3/uL (0.0-0.7); EOSINOPHILS % (AUTO) 1.3 %; HCT - HEMATOCRIT 38.9 % (37.0-47.0); HGB - HEMOGLOBIN 12.8 g/dL (12.0-16.0); LYMPHOCYTES # (AUTO) 1.5 10^3/uL (1.5-3.5); LYMPHOCYTES % (AUTO) 25.5 %; MEAN CORPUSCULAR HEMOGLOBIN 29.6 pg (27.0-31.0); MEAN CORPUSCULAR HGB CONC 32.9 g/dL (32.0-36.0); MEAN CORPUSCULAR VOLUME 89.8 fL (81.0-99.0); MONOCYTES # (AUTO) 0.3 10^3/uL (0.0-1.0); MONOCYTES % (AUTO) 4.6 %; NEUTROPHILS # (AUTO) 4.1 10^3/uL (1.5-6.6); NEUTROPHILS % (AUTO) 67.6 %; PLT - PLATELET COUNT 288 10^3/uL (130-450); RED BLOOD COUNT 4.33 10^6/uL (4.20-5.40); RED CELL DISTRIBUTION WIDTH 12.4 % (12.0-15.0)
[2022-11-22 14:09] LABS: PT - PROTHROMBIN TIME 11.3 secs (9.9-12.6)
[2022-11-22 14:17] LABS: ALBUMIN/GLOBULIN RATIO 1.3 (1.0-2.2); BILIRUBIN,TOTAL 0.6 mg/dL (0.2-1.0); CALCIUM 9.2 mg/dL (8.5-10.3); CREATININE 0.9 mg/dL (0.4-1.0); POTASSIUM 3.7 mmol/L (3.5-5.0); TOTAL PROTEIN 7.2 g/dL (6.7-8.2)
[2022-11-22] MEDS ORDERED: LORazepam 2 MG/ML VIAL IVP STA (14:59)
[2022-11-22] MEDS ORDERED: LORazepam 2 MG/ML VIAL ONE (15:09)
--- NOTE | 2022-11-22 15:11 | CT Report ---
PROCEDURE: ANGIO HEAD W/WO INDICATIONS: L sided facial droop CONTRAST: 80ml omni 350 TECHNIQUE: Precontrast 4.5 mm thick angled axial sections acquired from the foramen magnum to the vertex. Afte r the administration of intravenous contrast, 1 mm thick sections acquired through the [place] of [place] is. Postcontrast 4.5 mm thick sections then re-acquired from the foramen magnum to the vertex. 3-di mensional ofrpcns-fhsgnvlzy-ukolensiqu (MIP) and/or volume rendering reformats were acquired of the c entral intracranial vasculature. For radiation dose reduction, the following was used: automated ex posure control, adjustment of mA and/or kV according to patient size. COMPARISON: CT head and CT angiogram of neck from the same day. FINDINGS: Image quality: Excellent. Anterior circulation: Absence of flow in intracranial portion of left internal carotid artery is seen . No hemodynamically significant stenosis is seen in distal intracranial portion of right internal ca rotid artery. Left anterior and middle cerebral arteries are supplied from the right side near patent anterior communicating artery. The flow within the paired anterior cerebral arteries is normal and s ymmetric. The flow within the middle cerebral arteries is normal and symmetric. The anterior commun icating artery is seen. No aneurysms are seen. Posterior circulation: Visualized portions of the vertebral arteries demonstrate normal caliber, and join to form a normal appearing basilar artery. Flow within the posterior cerebral arteries is norm al and symmetric. No aneurysms are seen. CSF spaces: Ventricles are normal in size and shape. Basal cisterns are patent. No extra-axial flu id collections. Brain: No midline shift. No intracranial bleeds or masses. Mack-white matter interface appears int act. No area of abnormal intracranial enhancement is noted. Skull and face: Calvarium and facial bones appear intact, without suspicious lesions. Sinuses: Visualized sinuses and mastoids are clear. IMPRESSION: 1. Occlusion involving left internal carotid artery. Left cerebral circulation is supplied from right side via anterior communicating artery. 2. No hemodynamically significant stenosis or aneurysm is seen in rest of the intracranial circulatio n. 3. No acute intracranial bleed, midline shift or mass effect. No area of abnormal intracranial enhanc ement. Reviewed by: Ernesto Matson MD on 11/22/2022 3:10 PM PDT Approved by: Ernesto Matson MD on 11/22/2022 3:10 PM PDT Station ID: [id number]
--- NOTE | 2022-11-22 16:17 | MRI Report ---
PROCEDURE: BRAIN WO INDICATIONS: eval from TECHNIQUE: Noncontrast axial T1 spin echo, axial T2 fast spin echo, sagittal and axial FLAIR, coronal T2 fast sp in echo, axial gradient echo, axial diffusion and ADC through the brain. COMPARISON: CT of brain from the same day. FINDINGS: Image quality: Excellent. CSF Spaces: Basal cisterns are patent. No extra-axial fluid collections. Ventricles are normal in size and shape. Brain: No intracranial masses or hemorrhage. Mack/white matter interface is normal. Brainstem appe ars normal. Diffusion-weighted images demonstrate no acute ischemic insult. No chronic ischemic ins ults. Normal intravascular flow voids are present. Skull and face: Calvarium has normal marrow signal. Orbits appear normal. Sinuses: Sinuses and mastoids are clear. IMPRESSION: 1. No evidence of acute infarction. No acute intracranial bleed, midline shift or mass effect. Reviewed by: Ernesto Matson MD on 11/22/2022 4:16 PM PDT Approved by: Ernesto Matson MD on 11/22/2022 4:16 PM PDT Station ID: [id number]
--- NOTE | 2022-11-22 17:30 | Ultrasound Report ---
PROCEDURE: Carotid Doppler Complete INDICATIONS: left ICA stenosis TECHNIQUE: Color and pulse Doppler interrogation was performed of both carotid systems, with image documentation and velocity measurements. COMPARISON: CT angiogram of neck from the same day. FINDINGS: Right side: Brachial blood pressure: 144/78 mm Hg. Common carotid artery peak systolic velocity: 54.7 cm/sec. Internal carotid artery peak systolic velocity: 317.3 cm/sec. Internal carotid artery end diastolic velocity: 198 cm/sec. External carotid artery peak systolic velocity: 151.8 cm/sec. ICA/CCA peak systolic ratio: 5.8 . Mack scale imaging description: No significant atherosclerotic plaque. Percent internal carotid artery stenosis: 70% to near occlusion.. Vertebral artery: Flow direction is antegrade. Left side: Brachial blood pressure: 10 80/73 mm Hg. Common carotid artery peak systolic velocity: 46.8 cm/sec. Internal carotid artery peak systolic velocity: Not applicable Internal carotid artery end diastolic velocity: Not applicable External carotid artery peak systolic velocity. 40.7 cm/s ICA/CCA peak systolic ratio: Not applicable . Mack scale imaging description: No significant atherosclerotic plaque. Percent internal carotid artery stenosis: Left internal carotid artery is occluded.. Vertebral artery: Flow direction is antegrade. IMPRESSION: 1. In the right internal carotid artery, there is greater than 90% stenosis based on peak systolic ve locity criteria. 2. In the left internal carotid artery, there is occlusion based on peak systolic velocity criteria. 3. Antegrade blood flow within the right vertebral artery. 4. Antegrade blood flow within the left vertebral artery. The estimate of stenosis included in the report of the imaging study was calculated using the [facility]-end orsed standards of carotid artery stenosis. Reviewed by: Ernesto Matson MD on 11/22/2022 5:29 PM PDT Approved by: Ernesto Matson MD on 11/22/2022 5:29 PM PDT Station ID: [id number]
[2022-11-22 18:46] VITALS: BP 124/78
== END 2022-11-22 18:25 | disposition home or self-care (01) ==
LOC: EDUNIT# → ED 13:23
DX: I65.23 Occlusion and stenosis of bilateral carotid arteries (principal); F17.200 Nicotine dependence, unspecified, uncomplicated; Z20.822 Contact with and (suspected) exposure to COVID-19
CPT/HCPCS: 36415; 70450; 70496; 70498; 70551; 71045; 80053; 83690; 84484; 85025; 85610; 87635; 93005; 93880; 96374; 99284; 99285; J2060; Q9967